=== PATIENT | female | born 1985 | race Caucasian/White ===

== ENCOUNTER 2018-04-03 15:31 | Emergency (ER) | payer OTHER ==
[~2018-04-03] VITALS: Ht 177.8 cm; Wt 81.7 kg
[~2018-04-03 15:31] MED LIST: CARAFATE 11 GM/10 M1 PO; LORTAB PO; NOHOMEMEDICATIONS; PROTONIX 20 MG20 M1 PO
[2018-04-03] MEDS ORDERED: NORCO 5-325 TA1 EACH PO (16:10)
[2018-04-03 17:17] VITALS: BP 126/82
== END 2018-04-03 16:59 | disposition home or self-care (01) ==
LOC: ER 15:31
DX: M25.562 Pain in left knee (principal); F17.210 Nicotine dependence, cigarettes, uncomplicated; Z88.0 Allergy status to penicillin; Z88.6 Allergy status to analgesic agent; Z90.49 Acquired absence of other specified parts of digestive tract